=== PATIENT | female | born 1965 | race Caucasian/White ===

== ENCOUNTER 2022-12-17 08:25 | Outpatient (CLI) | payer BC, SELFPAY ==
--- NOTE | 2022-12-17 08:15 | CRLHL7_ITS ---
For Patients: As a result of the Cures Act, medical imaging exams and procedure reports are released immediately into your electronic medical record. You may view this report before your referring provider. If you have questions, please contact your health care provider. BILATERAL SCREENING MAMMOGRAM WITH COMPUTER-AIDED DETECTION AND TOMOSYNTHESIS TECHNIQUE: CC and MLO views were obtained. These mammographic images have been obtained using full-field digital technique. These mammographic images were interpreted with the benefit of computer-aided detection. Breast Tomosynthesis was used in this interpretation. COMPARISON FILM: 2D: 11/25/21, 11/20/20, 03/12/20. 3D: 03/09/19. FINDINGS: There are scattered areas of fibroglandular density IMPRESSION: There is no radiographic evidence for malignancy. ASSESSMENT: BI-RADS Category 1: Negative RECOMMENDATION: Routine screening mammogram in 1 year. A lay language report of this examination will be provided to the patient. Fan Sorenson M.D. Diagnostic/Nuclear Medicine Radiologist [email or web address] Transcribed: 2:22 pm DW/Dictated by: Fan Sorenson MD @ 12/17/2022 8:55:00 AM (Electronically Signed)
== END 2022-12-17 08:26 | disposition home or self-care (01) ==
LOC: MAMMO 08:26
PROVIDERS: PCP Family Medicine; Visit Provider Family Medicine
DX: Z12.31 Encounter for screening mammogram for malignant neoplasm of breast (principal)
CPT/HCPCS: 77063; 77067

== ENCOUNTER 2023-03-10 07:40 | Outpatient (CLI) | payer BC, SELFPAY | END 2023-03-10 07:41 | disposition home or self-care (01) | LOC: NFLDREF 03-12 11:40 | PROVIDERS: PCP Family Medicine; Referring Provider Family Medicine; Visit Provider Family Medicine | DX: Z01.419 Encounter for gynecological examination (general) (routine) without abnormal findings (principal); R68.82 Decreased libido; E03.9 Hypothyroidism, unspecified; R79.89 Other specified abnormal findings of blood chemistry | CPT/HCPCS: 80053; 80061; 84443; 86803 ==

== ENCOUNTER 2023-11-05 09:17 | Outpatient (CLI) | payer BC, SELFPAY ==
--- NOTE | 2023-11-05 09:15 | CRLHL7_ITS ---
For Patients: As a result of the Century Cures Act, medical imaging exams and procedure reports are released immediately into your electronic medical record. You may view this report before your referring provider. If you have questions, please contact your health care provider. INDICATION: Neck pain. COMPARISON: 10/26/2023. TECHNIQUE: Sagittal T1, T2, and STIR sequences. Axial T2/gradient sequences. FINDINGS: Normal vertebral body facet alignment. No fractures. No vertebral body loss of height. No spondylolisthesis. No ligamentous injury. Normal marrow signal. No suspicious osseous lesions. Normal cord signal. No intradural mass or lesion. C1-2: No spinal canal narrowing. C2-3: No spinal canal or neural foraminal narrowing. C3-4: Disk degeneration posterior disc bulging disc osteophyte complex. No narrowing of the spinal canal. Uncovertebral joint hypertrophy results in moderate right and [id number]-[id number] left neural foraminal narrowing. C4-5: Disc generation posted disc bulging disc osteophyte complex. Partial effacement of ventral thecal sac and mild narrowing of spinal canal. Mild right and moderate left neural foraminal narrowing. C5-6: Disc degeneration. Broad-based disc osteophyte complex. Mild narrowing of spinal canal. Moderate bilateral foraminal narrowing. C6-7: Disc degeneration and posterior disc bulging disc osteophyte complex. Mild narrowing of spinal canal. Moderate bilateral foraminal narrowing. C7-T1: No spinal canal or neural foraminal narrowing. No spinal canal or neural foraminal narrowing in the visualized upper thoracic spine. Heterogeneous T2 hyperintense nodule of the right thyroid lobe. This may be better evaluated with ultrasound. IMPRESSION: 1. Normal alignment. No fractures. 2. Normal cord signal. 3. Cervical spondylosis. 4. At C3-4, moderate narrowing of the right neural foramen. 5. At C4-5, mild right and moderate left neural foraminal narrowing. 6. At C5-6 and C6-7, moderate narrowing of the bilateral neural foramina Dictated by Buzz Whitmore MD @ 11/05/2023 2:39:02 PM (Electronically Signed)
== END 2023-11-05 09:18 | disposition home or self-care (01) ==
LOC: MRI 09:17
PROVIDERS: PCP Family Medicine; Visit Provider Family Medicine
DX: M54.2 Cervicalgia (principal); M50.121 Cervical disc disorder at C4-C5 level with radiculopathy; M54.12 Radiculopathy, cervical region; G89.29 Other chronic pain
CPT/HCPCS: 72141

== ENCOUNTER 2023-12-21 08:45 | Outpatient (CLI) | payer OTHER, SELFPAY ==
--- OUTSIDE RECORDS SUMMARY | 2023-12-21 08:49 | XMS_ITS | Clinical Summary ---
Author Name Unknown Organization [facility] Address [place], [place] [address] Care Team Providers Care Production Quality Analyst Name Role Phone Marycarmen Villeda MD Primary Care Provider + Allergies No known active allergies Medications Medication Sig Dispensed Refills Start Date End Date Status TAHIR CHEW DOMINGA TAB 0 01/17/2008 Acti ve PREDNISONE 20 MG TABIndications:Rash and other nonspecific skin eruption 3 tabs qd for 5 days 15 0 02/06/2009 Active Encounters Date Type Department Care Team Description 12/15/2023 10:58 AM AUTO PARTS PROFESSIONAL - 12/15/2023 11:59 PM AUTO PARTS PROFESSIONAL Hospital Encounter [address] [address] Skyler Morris MD Vinar, Kaylin J, RUBBER DOWN 12/15/2023 Travel 12/08/2023 8:00 AM AUTO PARTS PROFESSIONAL - 12/08/2023 11:59 PM AUTO PARTS PROFESSIONAL Hospital Encounter [address] [address] Skyler Morris MD Vinar, Kaylin J, RUBBER DOWN 12/08/2023 Travel 12/01/2023 8:17 AM AUTO PARTS PROFESSIONAL - 12/01/2023 11:59 PM AUTO PARTS PROFESSIONAL Hospital Encounter [address] [address] Skyler Morris MD Hagy, Tia, PT Encounter for person encountering health services 12/01/2023 Travel 10/26/2023 Transcribe Orders [address] [address] Skyler Morris MD from Last 3 Months Immunizations Name Administration Dates Next Due Influenza, IIV3 (Age >=3 years) 09/12/2010 Influenza, IIV4 10/22/2017 Social History Tobacco Use Types Packs/Day Years Used Date Smoking Tobacco: Never Assessed Sex and Gender Information Value Date Recorded Sex Assigned at Not on file Gender Identity Not on file Sexual Orientation Not on file Obstetrics History Last Filed Vital Signs Vital Sign Reading Time Taken Comments Blood Pressure 102/67 02/06/2009 8:19 AM CDT Pulse 76 02/06/2009 8:19 AM CDT Temperature 37 ??C (98.6 ??F) 02/06/2009 8:19 AM CDT Respiratory Rate - - Oxygen Saturation - - Inhaled Oxygen Concentration - - Weight 64 kg (141 lb) 02/06/2009 8:19 AM CDT Height - - Body Mass Index - - Plan of Treatment Upcoming Encounters Date Type Department Care Team (Late st Contact Info) Description 12/24/2023 3:30 PM AUTO PARTS PROFESSIONAL Appointment [address] [address] Carol Novoa, PT [address] [place] [address] 12/29/2023 9:30 AM AUTO PARTS PROFESSIONAL Appointment [address] [address] Daisy Blankenship, RUBBER DOWN [address] [place] [address] 01/05/2024 8:30 AM AUTO PARTS PROFESSIONAL Appointment [address] [address] Carol Novoa, PT [address] [place] [address] 01/12/2024 3:30 PM AUTO PARTS PROFESSIONAL Appointment [address] [place] [address] Carol Novoa, PT 35 [facility] [place] [address] 01/19/2024 10:00 AM AUTO PARTS PROFESSIONAL Appointment [facility] - [address] [place] [address] Carol Novoa, PT [address] [place] [address] Health Maintenance Due Date Last Done Comments Tdap 1977 Depression screening for age 12+ 1978 HIV for age 15-65 1981 BMI (ht and wt on same day) for age 18+ 1984 Tetanus booster 1986 Colonoscopy through age 75 2011 Lipids for age 45-75 2011 Mammogram for age 45-75 03/16/2016 03/16/2015 Zoster (shingles) series for age 50+ (1 of 2) 2016 COVID-19 vaccine series ( season) 2023 11/26/2021, 04/11/2021, 03/14/2021 Influenza for age 50-64 07/24/2023 10/22/2017, 09/12 Pap test for age 21-65 03/13/2026 3, 03/13/2023, 11/01/2018, Additional history exists Hepatitis C screening for age 18-79 Completed 07/31/2003 Pneumococcal series for age 6-64 Aged Out No longer eligible based on patient's age to complete this topic Care Teams Production Quality Analyst Relationship Specialty Start Date End Date Marycarmen Villeda MD [address] [place] [address] PCP - General Family Practice 12/01/23
--- OUTSIDE RECORDS SUMMARY | 2023-12-21 08:49 | XMS_ITS | Encounter Summary ---
Author Name Unknown Organization [facility] Address [address] [place] [address] Care Team Providers Care Film Critic Name Role Phone Unavailable Primary Care Provider Unavailabl e Encounter Details Date Type Department Care Team (Late st Contact Info) Description 09/15/2023 Clinical Communication Department of Orthopedic Surgery in [place], [place] [address] [place] [phone] Andrea Kitchen M.D. [address] [place] [address] Social History Tobacco Use Types Packs/Day Years Used Date Smoking Tobacco: Never Smokeless Tobacco: Never Alcohol Use Standard Drinks/Week Comments Yes 3 (1 standard drink = 0.6 oz pur e alcohol) Humiliation, Afraid, Rape, and Kick questionnair e Answer Date Recorded Within the last year, have y ou been afraid of your partner or ex-partner? No 10/01/2022 Within the last year, have y ou been humiliated or emotionally abused in other ways by your partner or ex-partner? No Within the last year, have y ou been kicked, hit, slapped, or otherwise physically hurt by your partner or ex-partner? No 10/01/2022 Within the last year, have y ou been raped or forced to have any kind of sexual activity by your partner or ex-partner? No 10/01/2022 Social Connection and Isolat ion Panel [NHANES] Answer Date Recorded In a typical week, how many times do you talk on the phone with family, friends, or neighbors? More than three times a week 10/01/2022 How often do you get togethe r with friends or relatives? Three times a week 10/01/2022 How often do you attend chur ch or sikhism services? Never 10/01/2022 Do you belong to any clubs o r organizations such as alevism groups, unions, fraternal or athletic groups, or school groups? Yes 10/01/2022 How often do you attend meet ings of the clubs or organizations you belong to? More than 4 times per year 10/01/2022 Are you , , di vorced, , never , or living with a partner? 10/01/2022 AUDIT-C Answer Date Recorded Q1: How often do you have a drink containing alc ohol? 2-3 times a week 10/01/2022 Q2: How many drinks containi ng alcohol do you have on a typical day when you are drinking? 1 or 2 10/01/2022 Q3: How often do you have si x or more drinks on one occasion? Never 10/01/2022 Overall Financial Resource Strain (CARDIA) Answe r Date Recorded How hard is it for you to pa y for the very basics like food, housing, medical care, and heating? Not hard at all 10/01/2022 [facility] of Occupat ional Health - Occupational Stress Questionnaire Answer Date Recorded Do you feel stress - tense, restless, nervous, or anxious, or unable to sleep at night because your mind is troubled all the time - these days? Only a little 10/01/2022 Exercise Vital Sign Answer Date Recorde d On average, how many days pe r week do you engage in moderate to strenuous exercise (like a brisk walk)? 4 days 10/01/2022 On average, how many minutes do you engage in exercise at this level? 40 min 10/01/2022 Hunger Vital Sign Answer Date Recorded Within the past 12 months, y ou worried that your food would run out before you got the money to buy more. Never true 10/01/20 22 Within the past 12 months, t he food you bought just didn't last and you didn't have money to get more. Never true 10/01/2022 PRAPARE - Transportation Answer Date Re corded In the past 12 months, has l ack of transportation kept you from medical appointments or from getting medications? No 07/2022 In the past 12 months, has l ack of transportation kept you from meetings, work, or from getting things needed for daily living? No 10/01/2022 Housing Stability Vital Sign Answer Jony e Recorded In the last 12 months, was t here a time when you were not able to pay the mortgage or rent on time? No 10/01/2022 In the last 12 months, how many places have you lived? 1 10/01/2022 In the last 12 months, was t here a time when you did not have a steady place to sleep or slept in a nursing home (including now)? No 10/01/2022 Nutrition Answer Date Recorded Nutrition: EVOO Fat Source No 10/01 On average, how many serving s of fruits and vegetables do you eat per day (serving size is equal to 1 cup or approximately the size of a tennis ball)? 2-3 10/01/2022 Dental Answer Date Recorded Dental: Regular Dentist Yes 10/01/20 Employment Answer Date Recorded Employment status Employed and actively working without restrictions 10/01/2022 Education Answer Date Recorded What is the highest level of school you have completed or the highest degree you have received? Master's degree (e.g., MA, MS, Sofia, MEd, MATE FISHING VESSEL, KEVIN) 10/01/2022 Sex and Gender Information Value Date Recorded Sex Assigned at Not on file Gender Identity Female 10/01/2022 10:17 AM MASTIC SPRAYER Sexual Orientation Straight 10/01/2022 10 :17 AM MASTIC SPRAYER documented as of this encounter Miscellaneous Notes * Telephone Encounter - Veronika Rodriguez - 09/15/2023 9:16 AM CDT Spine Network Questionnaire documented in this encounter Plan of Treatment Not on file documented as of this encounter Visit Diagnoses Not on filedocumented in this encounter
--- OUTSIDE RECORDS SUMMARY | 2023-12-21 08:49 | XMS_ITS | Clinical Summary ---
Author Name Unknown Organization [facility] Address [address] [place] [address] Care Team Providers Care Leguillon Debeader Name Role Phone Unavailable Primary Care Provider Unavailabl e Source Comments Patient records contain information from all sites at [facility]. For routine questions regarding patient records, call [phone] during business hours, M-F 8:00 AM - 5:00 PM Central Time. Record requests for emergency care only can be directed to [phone] at any time.[facility] Allergies Active Allergy Reactions Criticality Noted Date Comments Amoxicillin Rash 12/16/2022 Medications Medication Sig Dispensed Refills Start Date End Date Status levothyroxine (SYNTHROID, LEVOTHROID) 112 mcg tablet Take 112 mcg by mouth daily. 0 09/17/2022 Active pediatric multivitamin-iron chewable tablet Chew. 0 01/17/2008 Active Family History Medical History Relation Name Comments Hyperlipidemia Father dad meds Hypertension Father dad meds Coronary artery disease Maternal Grandfather papa heart issues/ 1982 Other cancer Paternal Grandmother liya uterine Ulcerative colitis Son drew treatment /remission Relation Name Status Comments Father dad Maternal Grandfather papa Paternal Grandmother liya Son drew Social History Tobacco Use Types Packs/Day Years [...] 10/01/2022 How often do you attend chur or restorationist services? Never 10/01/2022 Do you belong to any clubs o r organizations such as bahai groups, unions, fraternal or athletic groups, or [...] and heating? Not hard at all 10/01/2022 [facility] of Occupat ional Health - Occupational Stress [...] money to buy more. Never true 10/01/20 Within the past 12 months, t he [...] place to sleep or slept in a [place] (including now)? No 10/01/2022 Nutrition Answer Date [...] Master's degree (e.g., MA, MS, Sofia, MEd, PRECONSTRUCTION MANAGER, KEVIN) 10/01/2022 Sex and Gender Information Value Date Recorded Sex Assigned at Not on file Gender Identity Female 10/01/2022 10:17 AM BAND BIAS MACHINE OPERATOR Sexual Orientation Straight 10/01/2022 10 :17 AM BAND BIAS MACHINE OPERATOR Plan of Treatment Health Maintenance Due Date Last Done Comments CT Colonography 1966 Cologuard 1966 Colonoscopy 1966 Colorectal Cancer Screening 1966 FIT 1966 Fasting Glucose for Diabetes Screening 1966 Hepatitis B Vaccines (1 of 3 - 3-dose series) 1966 Hepatitis C Screening 1966 Lipid (Cholesterol) Screening 1966 Mammogram 1966 Thyroid Stimulating Hormone (TSH) test for thyroid function 1966 Zoster Vaccines (1 of 2) 2016 COVID-19 Vaccine (4 - season) 2023 11/26/2021, 04/11/2021, 03/14/2021 Influenza Vaccine (#1) 2023 , 10/30/2021, 10/06/2020, Additional history exists Depression Screening (Annual PHQ-2) 11/23/2023 Cervical Cancer Screening 03/13/2026 03/13/2023 DTaP,Tdap,and Td Vaccines (3 - Td or Tdap) 10/07/2032 10/07/2022, 06/27/2009 Pneumococcal vaccine (0-64 years) Aged Out No longer eligible based on patient's age [place] [phone]
--- OUTSIDE RECORDS SUMMARY | 2023-12-21 08:49 | XMS_ITS ---
Author Name Unknown Organization [facility] Address [address] [place] [address] Care Team Providers Care Him Analyst Name Role Phone Unavailable Unavailable Unavailable Surgery Details Not on file Complications Check Surgery Details section. Procedure Estimated Blood Loss Check Surgery Details section. Procedure Findings Check Surgery Details section. Procedure Specimens Taken Check Surgery Details section.
--- OUTSIDE RECORDS SUMMARY | 2023-12-21 08:49 | XMS_ITS | Referral Summary ---
Author Name Unknown Organization [facility] Address [address] [place] [address] Care Team Providers Care Electric Meter Repairer Helper Name Role Phone Unavailable Primary Care Provider Unavailabl e Source Comments Patient records contain information from all sites at [facility]. For routine questions regarding patient records, call [phone] during business hours, M-F 8:00 AM - 5:00 PM Central Time. Record requests for emergency care only can be directed to [phone] at any time.[facility] Allergies Active Allergy Reactions Criticality Noted Date Comments Amoxicillin Rash 12/16/2022 Medications Medication Sig Dispensed Refills Start Date End Date Status levothyroxine (SYNTHROID, LEVOTHROID) 112 mcg tablet Take 112 mcg by mouth daily. 0 09/17/2022 Active pediatric multivitamin-iron chewable tablet Chew. 0 01/17/2008 Active Social History Tobacco Use Types Packs/Day Years [...] How often do you attend chur or alevism services? Never 10/01/2022 Do you belong to any clubs o r organizations such as anabaptism groups, unions, fraternal or athletic groups, or [...] and heating? Not hard at all 10/01/2022 [facility] of Occupat iondc Health - Occupational Stress Questionnaire Answer Date [...] place to sleep or slept in a alf (including now)? No 10/01/2022 Nutrition Answer Date [...] Master's degree (e.g., MA, MS, Sofia, MEd, LENS CEMENTER, KEVIN) 10/01/2022 Sex and Gender Information Value Date Recorded Sex Assigned at Not on file Gender Identity Female 10/01/2022 10:17 AM DRIER OPERATOR Sexual Orientation Straight 10/01/2022 10 :17 AM DRIER OPERATOR Plan of Treatment Not on file
--- NOTE | 2023-12-21 09:00 | CRLHL7_ITS ---
For Patients: As a result of the Century Cures Act, medical imaging exams and procedure reports are released immediately into your electronic medical record. You may view this report before your referring provider. If you have questions, please contact your health care provider. INDICATION: Thyroid nodules. TECHNIQUE: Ultrasound thyroid with ortega-scale and color Doppler analysis. COMPARISON: 02/24/2019, 02/11/2019. FINDINGS: Right lobe: 3.6 x 1.9 x 1.9 cm. Lesion 1: Heterogeneous solid nodule with areas of increased echotexture measuring 2.3 x 1.3 x 1.6 cm, previously measuring 2.4 x 1.6 x 1.9 cm. This was previously biopsied. TR 4. Left lobe: 2.7 x 1.0 x 0.9 cm. Lesion 1: Slightly hyperechoic nodule upper pole measuring 4 x 6 x 6 millimeters. Previously, this measured 7 x 5 x 6 millimeters. TR 2. Isthmus: 1 Echotexture of the thyroid parenchyma is heterogeneous. Color Doppler analysis demonstrates normal vascularity. No evidence of lymphadenopathy or parathyroid mass. IMPRESSION: Similar morphology of previously biopsied nodule within the right thyroid lobe. Stable subcentimeter left thyroid lobe. - ACR TI-RADS [email or web address] TR1: Benign No FNA TR2: Not Suspicious No FNA TR3: Mildly Suspicious FNA if greater than or equal to 2.5 cm Follow if greater than or equal to 1.5 cm TR4: Moderately Suspicious FNA if greater than or equal to 1.5 cm Follow if greater than or equal to 1 cm TR5: Highly Suspicious FNA if greater than or equal to 1 cm Follow if greater than or equal to 0.5 cm Dictated by Terrance Eckert MD @ 12/21/2023 12:21:44 PM (Electronically Signed)
== END 2023-12-21 08:46 | disposition home or self-care (01) ==
LOC: US 08:46
PROVIDERS: PCP Family Medicine; Visit Provider Family Medicine
DX: E04.1 Nontoxic single thyroid nodule (principal)
CPT/HCPCS: 76536

== ENCOUNTER 2023-12-22 12:53 | Outpatient (CLI) | payer OTHER, SELFPAY ==
--- OUTSIDE RECORDS SUMMARY | 2023-12-22 12:56 | XMS_ITS | Encounter Summary ---
Author Name Unknown Organization [facility] Address [address] [place] [address] Care Team Providers Care Vp Marketing Services And Skin Name Role Phone Unavailable Primary Care Provider Unavailabl e Encounter Details Date Type Department Care Team (Late st Contact Info) Description 09/15/2023 Clinical Communication Department of Orthopedic Surgery in [place], [place] [address] [place] [phone] Andrea Kitchen M.D. [address] [place] [address] Social History Tobacco Use Types Packs/Day Years [...] often do you attend chur ch or christian services? Never 10/01/2022 Do you belong to any clubs o r organizations such as gnosticist groups, unions, fraternal or athletic groups, or [...] and heating? Not hard at all 10/01/2022 [facility] of Occupat ional Health - Occupational Stress [...] place to sleep or slept in a penitentiary (including now)? No 10/01/2022 Nutrition Answer Date [...] Master's degree (e.g., MA, MS, Sofia, MEd, OIL FURNACE INSTALLER, KEVIN) 10/01/2022 Sex and Gender Information Value Date Recorded Sex Assigned at Not on file Gender Identity Female 10/01/2022 10:17 AM FUSING FURNACE LOADER Sexual Orientation Straight 10/01/2022 10 :17 AM FUSING FURNACE LOADER documented as of this encounter Miscellaneous Notes * Telephone Encounter - Veronika Rodriguez - 09/15/2023 9:16 AM CDT Spine Network Questionnaire documented in this encounter Plan of Treatment Not on file documented as of this encounter Visit Diagnoses Not on filedocumented in this encounter
--- OUTSIDE RECORDS SUMMARY | 2023-12-22 12:56 | XMS_ITS | Referral Summary ---
Author Name Unknown Organization [facility] Address [address] [place] [address] Care Team Providers Care Model Maker Apprentice Name Role Phone Unavailable Primary Care Provider Unavailabl e Source Comments Patient records contain information from all sites at [facility]. For routine questions regarding patient records, call [phone] during business hours, M-F 8:00 AM - 5:00 PM Central Time. Record requests for emergency care only can be directed to [phone] at any time.[facility] Allergies Active Allergy Reactions Criticality Noted Date [...] How often do you attend chur or jewish services? Never 10/01/2022 Do you belong to any clubs o r organizations such as adventism groups, unions, fraternal or athletic groups, or [...] and heating? Not hard at all 10/01/2022 [facility] of Occupat ionsd Health - Occupational Stress Questionnaire Answer Date [...] place to sleep or slept in a fpc (including now)? No 10/01/2022 Nutrition Answer Date [...] Master's degree (e.g., MA, MS, Sofia, MEd, DONOR RELATIONS ASSOCIATE, KEVIN) 10/01/2022 Sex and Gender Information Value Date Recorded Sex Assigned at Not on file Gender Identity Female 10/01/2022 10:17 AM STUNTMAN Sexual Orientation Straight 10/01/2022 10 :17 AM STUNTMAN Plan of Treatment Not on file
--- OUTSIDE RECORDS SUMMARY | 2023-12-22 12:56 | XMS_ITS ---
Author Name Unknown Organization [facility] Address [address] [place] [address] Care Team Providers Care Pharmacy Delivery Driver Name Role Phone Unavailable Unavailable Unavailable Surgery Details Not on file Complications Check Surgery Details section. Procedure Estimated Blood Loss Check Surgery Details section. Procedure Findings Check Surgery Details section. Procedure Specimens Taken Check Surgery Details section.
--- OUTSIDE RECORDS SUMMARY | 2023-12-22 12:56 | XMS_ITS | Clinical Summary ---
Author Name Unknown Organization [employer] [facility] Address [place], [place] [address] Care Team Providers Care Phlebotomy Instructor Name Role Phone Marycarmen Villeda MD Primary Care Provider + Allergies No known active allergies Medications Medication Sig Dispensed Refills Start Date End Date Status TAHIR CHEW DOMINGA TAB 0 01/17/2008 Acti ve PREDNISONE 20 MG TABIndications:Rash and other nonspecific skin eruption 3 tabs qd for 5 days 15 0 02/06/2009 Active Encounters Date Type Department Care Team Description 12/15/2023 10:58 AM WELCOME HOSTESS - 12/15/2023 11:59 PM WELCOME HOSTESS Hospital Encounter [address] [address] Skyler Morris MD Vinar, Kaylin J, DELI WORKER 12/15/2023 Travel 12/08/2023 8:00 AM WELCOME HOSTESS - 12/08/2023 11:59 PM WELCOME HOSTESS Hospital Encounter [address] [address] Skyler Morris MD Vinar, Kaylin J, DELI WORKER 12/08/2023 Travel 12/01/2023 8:17 AM WELCOME HOSTESS - 12/01/2023 11:59 PM WELCOME HOSTESS Hospital Encounter [address] [address] Skyler Morris MD Hagy, Tia, PT Encounter for person encountering health services 12/01/2023 Travel 10/26/2023 Transcribe Orders [address] [address] Skyler Morris MD from Last 3 Months [...] st Contact Info) Description 12/24/2023 3:30 PM WELCOME HOSTESS Appointment [address] [address] Carol Novoa, PT [address] [place] [address] 12/29/2023 9:30 AM WELCOME HOSTESS Appointment [address] [address] Daisy Blankenship, DELI WORKER [address] [place] [address] 01/05/2024 8:30 AM WELCOME HOSTESS Appointment [address] [address] Carol Novoa, PT [address] [place] [address] 01/12/2024 3:30 PM WELCOME HOSTESS Appointment [address] [place] [address] Carol Novoa, PT 35 [facility] [place] [address] 01/19/2024 10:00 AM WELCOME HOSTESS Appointment [facility] - [address] [place] [address] Carol Novoa, PT [address] [place] [address] Health Maintenance Due Date Last Done Comments [...] age to complete this topic Care Teams Phlebotomy Instructor Relationship Specialty Start Date End Date Marycarmen Villeda MD [address] [place] [address] PCP - General Family Practice 12/01/23
--- OUTSIDE RECORDS SUMMARY | 2023-12-22 12:56 | XMS_ITS | Clinical Summary ---
Author Name Unknown Organization [facility] Address [address] [place] [address] Care Team Providers Care Cna Gna Name Role Phone Unavailable Primary Care Provider Unavailabl e Source Comments Patient records contain information from all sites at [facility]. For routine questions regarding patient records, call [phone] during business hours, M-F 8:00 AM - 5:00 PM Central Time. Record requests for emergency care only can be directed to [phone] at any time.[facility] Allergies Active Allergy Reactions Criticality Noted [...] How often do you attend chur or tenriism services? Never 10/01/2022 Do you belong to any clubs o r organizations such as episcopalian groups, unions, fraternal or athletic groups, or [...] and heating? Not hard at all 10/01/2022 [facility] of Occupat ional Health - Occupational Stress [...] Master's degree (e.g., MA, MS, Sofia, MEd, VETERINARY LABORATORY TECHNICIAN, KEVIN) 10/01/2022 Sex and Gender Information Value Date Recorded Sex Assigned at Not on file Gender Identity Female 10/01/2022 10:17 AM GEOTHERMAL POWERPLANT MECHANIC Sexual Orientation Straight 10/01/2022 10 :17 AM GEOTHERMAL POWERPLANT MECHANIC Plan of Treatment Health Maintenance Due Date [...] patient's age [place] [address]
--- NOTE | 2023-12-22 13:00 | CRLHL7_ITS ---
For Patients: As a result of the Century Cures Act, medical imaging exams and procedure reports are released immediately into your electronic medical record. You may view this report before your referring provider. If you have questions, please contact your health care provider. BILATERAL SCREENING MAMMOGRAM WITH COMPUTER-AIDED DETECTION AND TOMOSYNTHESIS TECHNIQUE: CC and MLO views were obtained. These mammographic images have been obtained using full-field digital technique. These mammographic images were interpreted with the benefit of computer-aided detection. Breast Tomosynthesis was used in this interpretation. COMPARISON FILM: 12/17/22, 11/25/21, 11/20/20. FINDINGS: There are scattered areas of fibroglandular density. IMPRESSION: There is no radiographic evidence for malignancy. ASSESSMENT: BI-RADS Category 1: Negative RECOMMENDATION: Routine screening mammogram in 1 year. A lay language report of this examination will be provided to the patient. Terrance Eckert M.D. Diagnostic Radiologist [email or web address] SP/Dictated by: Terrance Eckert MD @ 12/23/2023 1:30:00 PM (Electronically Signed)
== END 2023-12-22 12:54 | disposition home or self-care (01) ==
LOC: MAMMO 12:54
PROVIDERS: PCP Family Medicine; Visit Provider Family Medicine
DX: Z12.31 Encounter for screening mammogram for malignant neoplasm of breast (principal)
CPT/HCPCS: 77063; 77067

== ENCOUNTER 2024-04-28 08:16 | Outpatient (CLI) | payer OTHER, SELFPAY ==
--- OUTSIDE RECORDS SUMMARY | 2024-05-02 13:44 | XMS_ITS ---
Author Organization [facility] Address [address] [place] [address] Care Team Providers Care Network Analyst Name Role Phone Unavailable Unavailable Unavailable Surgery Details Not on file Complications Check Surgery Details section. Procedure Estimated Blood Loss Check Surgery Details section. Procedure Findings Check Surgery Details section. Procedure Specimens Taken Check Surgery Details section.
--- OUTSIDE RECORDS SUMMARY | 2024-05-02 13:44 | XMS_ITS | Referral Summary ---
Author Organization [facility] Address [address] [place] [address] Care Team Providers Care Index Editor Name Role Phone Unavailable Primary Care Provider Unavailabl e Source Comments Patient records contain information from all sites at [facility]. For routine questions regarding patient records, call [phone] during business hours, M-F 8:00 AM - 5:00 PM Central Time. Record requests for emergency care only can be directed to [phone] at any time.[facility] Allergies Active Allergy Reactions Criticality Noted Date Comments Amoxicillin Rash 12/16/2022 Medications Medication Sig Dispensed Refills Start Date End Date Status levothyroxine (SYNTHROID, LEVOTHROID) 112 mcg tablet Take 112 mcg by mouth daily. 09/17/2022 Active pediatric multivitamin-iron chewable tablet Chew. 01/17/2008 Active Social History Tobacco Use Types [...] often do you attend chur ch or protestant services? Never 10/01/2022 Do you belong to any clubs o r organizations such as congregational groups, unions, fraternal or athletic groups, or [...] and heating? Not hard at all 10/01/2022 [facility] of Occupat ional Health - Occupational Stress [...] the money to buy more. Never true 11/09/20 22 Within the past 12 months, t [...] place to sleep or slept in a detention (including now)? No 10/01/2022 Nutrition Answer Date [...] Master's degree (e.g., MA, MS, Sofia, MEd, HOG WORKER, KEVIN) 10/01/2022 Sex and Gender Information Value Date Recorded Sex Assigned at Not on file Gender Identity Female 10/01/2022 10:17 AM FRONT DESK RECEPTIONIST Sexual Orientation Straight 10/01/2022 10 :17 AM FRONT DESK RECEPTIONIST Plan of Treatment Not on file
--- OUTSIDE RECORDS SUMMARY | 2024-05-02 13:44 | XMS_ITS | Clinical Summary ---
Author Organization [employer] [facility] Address [place], [place] [address] Care Team Providers Care Parking Control Officer Name Role Phone Marycarmen Villeda MD Primary Care Provider + Allergies No known active allergies Medications Medication Sig Dispensed Refills Start Date End Date Status TAHIR CHEW DOMINGA TAB 0 01/17/2008 Acti ve PREDNISONE 20 MG TABIndications:Rash and other nonspecific skin eruption 3 tabs qd for 5 days 15 0 02/06/2009 Active Immunizations Name Administration Dates Next Due Influenza, [...] Mass Index - - Plan of Treatment Health Maintenance Due Date [...] (1 of 2) 2016 COVID-19 vaccine series (4 - season) 2023 11/26/2021, 04/11/2021, 03/14/2021 Influenza for age 50-64 07/24/2024 10/22/2017, 09/12 Pap test for age 21-65 03/13/2026 , 03/13/2023, 11/01/2018, Additional history exists Hepatitis C screening for age 18-79 Completed 07/31/2003 Pneumococcal series for age 6-64 Aged Out No longer eligible based on patient's age to complete this topic Procedures Procedure Name Priority Date/Time Associated Diagnosis Comments HPV THIN PREP Routine 03/13/2023 10:30 AM CDT Encounter for screening for malignant neoplasm of cervix SCAN-MAMMOGRAPHY REPORT 03/16/2015 12:00 AM CDT ANTI HCV Routine 07/31/2003 5:18 PM CDT from Last 3 Months or Most Recently Relevant to Health Maintenance Results * HPV HIGH RISK (03/13/2023 10:30 AM CDT) TYPE 16 Negative Negative 03/17/2023 5:32 PM CDT [facility] LAB[facility]AT[facility] TYPE 18 Negative Negative 03/17/2023 5:32 PM CDT [facility] TRAL LAB[facility]ORY OTHER HIGH RISK TYPES Negative Negative 03/17/2023 5:32 PM CDT [facility] TR[facility] LAB[facility] Other (Cervical/Vagina l) 03/13/2023 10:30 AM CDT 03/16/2023 9:51 AM CDT Narrative [facility] - 03/17/2023 5:32 PM CDT HPV types 16, 18, 31, 33, 35, 39, 45, 51, 52, 56, 58, 59, 66 and 68 DNA were undetectable or below the pre-set threshold. Methodology: Taya Nathalia 4800 HPV Test Marycarmen Villeda MD MICROBIOLOGY [facility] [address] [place] [address], * SCAN-MAMMOGRAPHY REPORT (03/16/2015 12:00 AM CDT) Anatomical Region Laterality Modality Other Narrative 03/19/2015 12:10 PM CDT Procedure Note Scanner - 03/16/2015 12:00 AM CDT Scanner OTHER * ANTI HCV (07/31/2003 5:18 PM CDT) ANTI HCV Non-reactiv e 07/31/2003 5:18 PM CDT Narrative 05/02/2004 8:57 AM CDT Ordered by an unspecified provider. Other Clinical Staff SEND OUTS from Last 3 Months or Most Recently Relevant to Health Maintenance Care Teams Parking Control Officer Relationship Specialty Start Date End Date Marycarmen Villeda MD [address] [place] [address] PCP - General Family Practice 12/01/23
--- OUTSIDE RECORDS SUMMARY | 2024-05-02 13:44 | XMS_ITS | Clinical Summary ---
Author Organization [facility] Address [address] [place] [address] Care Team Providers Care Client Professional Name Role Phone Unavailable Primary Care Provider Unavailabl e Source Comments Patient records contain information from all sites at [facility]. For routine questions regarding patient records, call [phone] during business hours, M-F 8:00 AM - 5:00 PM Central Time. Record requests for emergency care only can be directed to [phone] at any time.[facility] Allergies Active Allergy Reactions Criticality Noted Date Comments Amoxicillin Rash 12/16/2022 Medications Medication Sig Dispensed Refills Start Date End Date Status levothyroxine (SYNTHROID, LEVOTHROID) 112 mcg tablet Take 112 mcg by mouth daily. 09/17/2022 Active pediatric multivitamin-iron chewable tablet Chew. 01/17/2008 Active Family History Medical History Relation [...] How often do you attend chur or muslim services? Never 10/01/2022 Do you belong to any clubs o r organizations such as jehovah's witness groups, unions, fraternal or athletic groups, or [...] and heating? Not hard at all 10/01/2022 [facility] [place] of Occupat ional Health - Occupational Stress [...] place to sleep or slept in a custodial (including now)? No 10/01/2022 Nutrition Answer Date [...] Master's degree (e.g., MA, MS, Sofia, MEd, ONLINE HEALTH AND FITNESS COACH, KEVIN) 10/01/2022 Sex and Gender Information Value Date Recorded Sex Assigned at Not on file Gender Identity Female 10/01/2022 10:17 AM APPLIED MARINE PHYSICS PROFESSOR Sexual Orientation Straight 10/01/2022 10 :17 AM APPLIED MARINE PHYSICS PROFESSOR Plan of Treatment Health Maintenance Due Date Last Done Comments CT Colonography 1966 Cologuard 1966 Colonoscopy 1966 Colorectal Cancer Screening 1966 FIT 1966 Fasting Glucose for Diabetes Screening 1966 Hepatitis C Screening 1966 Lipid (Cholesterol) Screening 1966 Mammogram 1966 Thyroid Stimulating Hormone (TSH) test for thyroid function 1966 Hepatitis B Vaccines (1 of 3 - 19+ 3-dose series) 1985 Zoster Vaccines (1 of 2) 2016 COVID-19 Vaccine ( - 2022-24 season) 2023 11/26/2021, 04/11/2021, 03/14/2021 Depression Screening (Annual PHQ-2) 11/23/2023 Cervical Cancer Screening 03/13/2026 03/13/2023 DTaP,Tdap,and Td Vaccines (3 - Td or Tdap) 10/07/2032 10/07/2022, 06/27/2009 Influenza Vaccine Completed 12/09/2023, , 10/30/2021, Additional history exists Pneumococcal vaccine (0-64 years) Aged Out No longer eligible based on patient's age to complete this topic
== END 2024-04-28 08:17 | disposition home or self-care (01) ==
LOC: NFLDREF 05-02 13:43
PROVIDERS: PCP Family Medicine; Referring Provider Family Medicine; Visit Provider Family Medicine
DX: Z00.00 Encounter for general adult medical examination without abnormal findings (principal); E03.8 Other specified hypothyroidism; E06.3 Autoimmune thyroiditis; E78.5 Hyperlipidemia, unspecified; R79.89 Other specified abnormal findings of blood chemistry; Z13.9 Encounter for screening, unspecified
CPT/HCPCS: 80053; 80061; 84443

== ENCOUNTER 2024-05-12 13:14 | Outpatient (CLI) | payer OTHER, SELFPAY ==
--- OUTSIDE RECORDS SUMMARY | 2024-05-12 13:16 | XMS_ITS | Referral Summary ---
Author Organization [facility] Address [address] [place] [address] Care Team Providers Care Senior Specialist Name Role Phone Unavailable Primary Care Provider Unavailabl e Source Comments Patient records contain information from all sites at [facility]. For routine questions regarding patient records, call [phone] during business hours, M-F 8:00 AM - 5:00 PM Central Time. Record requests for emergency care only can be directed to [phone] at any time.[facility] Allergies Active Allergy Reactions Criticality Noted [...] often do you attend chur ch or oriental orthodox services? Never 10/01/2022 Do you belong to any clubs o r organizations such as yazdanism groups, unions, fraternal or athletic groups, or [...] and heating? Not hard at all 10/01/2022 [facility] of Occupat ional Health - Occupational [...] Master's degree (e.g., MA, MS, Sofia, MEd, CHILD DEVELOPMENT ASSISTANT, KEVIN) 10/01/2022 Sex and Gender Information Value Date Recorded Sex Assigned at Not on file Gender Identity Female 10/01/2022 10:17 AM PAINT MIXER HAND Sexual Orientation Straight 10/01/2022 10 :17 AM PAINT MIXER HAND Plan of Treatment Not on file
--- OUTSIDE RECORDS SUMMARY | 2024-05-12 13:16 | XMS_ITS | Clinical Summary ---
Author Organization [facility] Address [address] [place] [address] Care Team Providers Care Cloth Packer Name Role Phone Unavailable Primary Care Provider Unavailabl e Source Comments Patient records contain information from all sites at [facility]. For routine questions regarding patient records, call [phone] during business hours, M-F 8:00 AM - 5:00 PM Central Time. Record requests for emergency care only can be directed to [phone] at any time.[facility] Allergies Active Allergy Reactions Criticality Noted [...] How often do you attend chur or christianity services? Never 10/01/2022 Do you belong to any clubs o r organizations such as methodist groups, unions, fraternal or athletic groups, or [...] and heating? Not hard at all 10/01/2022 [facility] [place] of Occupat ional Health - Occupational Stress [...] place to sleep or slept in a jail (including now)? No 10/01/2022 Nutrition Answer Date [...] Master's degree (e.g., MA, MS, Sofia, MEd, VETERANS SERVICE OFFICER, KEVIN) 10/01/2022 Sex and Gender Information Value Date Recorded Sex Assigned at Not on file Gender Identity Female 10/01/2022 10:17 AM SUBSTANCE ABUSE SPECIALIST Sexual Orientation Straight 10/01/2022 10 :17 AM SUBSTANCE ABUSE SPECIALIST Plan of Treatment Health Maintenance Due Date [...]
--- OUTSIDE RECORDS SUMMARY | 2024-05-12 13:16 | XMS_ITS ---
Author Organization [facility] Address [address] [place] [address] Care Team Providers Care 3D Technologist Name Role Phone Unavailable Unavailable Unavailable Surgery Details Not on file Complications Check Surgery Details section. Procedure Estimated Blood Loss Check Surgery Details section. Procedure Findings Check Surgery Details section. Procedure Specimens Taken Check Surgery Details section.
--- OUTSIDE RECORDS SUMMARY | 2024-05-12 13:16 | XMS_ITS | Clinical Summary ---
Author Organization [employer] [facility] Address [place], [place] [address] Care Team Providers Care Hoop Coiler Name Role Phone Marycarmen Villeda MD Primary [...] 16 Negative Negative 03/17/2023 5:32 PM CDT [facility] TR[facility] LABORATORY TYPE 18 Negative Negative 03/17/2023 5:32 PM CDT [facility] TR[facility] OTHER HIGH RISK TYPES Negative Negative 03/17/2023 5:32 PM CDT [facility] Other (Cervical/Vagina l) 03/13/2023 10:30 AM CDT 03/16/2023 9:51 AM CDT Narrative [facility] - 03/17/2023 5:32 PM CDT HPV types 16, 18, 31, 33, 35, 39, 45, 51, 52, 56, 58, 59, 66 and 68 DNA were undetectable or below the pre-set threshold. Methodology: Taya Nathalia 4800 HPV Test Marycarmen Villeda MD MICROBIOLOGY [facility]AL LAB[facility]ORY [address] [place] [address], * SCAN-MAMMOGRAPHY REPORT (03/16/2015 12:00 AM CDT) [...] Recently Relevant to Health Maintenance Care Teams Hoop Coiler Relationship Specialty Start Date End Date Marycarmen Villeda MD [address] [place] [address] PCP - General Family Practice 12/01/23
== END 2024-05-12 13:15 | disposition home or self-care (01) ==
PROVIDERS: PCP Family Medicine; Visit Provider Family Medicine
DX: Z00.00 Encounter for general adult medical examination without abnormal findings (principal); E03.9 Hypothyroidism, unspecified; R68.82 Decreased libido; R79.89 Other specified abnormal findings of blood chemistry; E06.3 Autoimmune thyroiditis; E78.5 Hyperlipidemia, unspecified; R74.8 Abnormal levels of other serum enzymes
CPT/HCPCS: 80074; 82103; 82390; 82728; 82977; 86015; 86039; 86376

== ENCOUNTER 2024-06-14 07:07 | Outpatient (CLI) | payer OTHER, SELFPAY ==
--- OUTSIDE RECORDS SUMMARY | 2024-06-14 07:09 | XMS_ITS | Referral Summary ---
Author Organization [facility] Address [address] [place] [address] Care Team Providers Care Information Security Manager Name Role Phone Unavailable Primary Care Provider Unavailabl e Source Comments Patient records contain information from all sites at [facility]. For routine questions regarding patient records, call [phone] during business hours, M-F 8:00 AM - 5:00 PM Central Time. Record requests for emergency care only can be directed to [phone] at any time.[facility] Allergies Active Allergy Reactions Criticality Noted [...] often do you attend chur ch or scientologist services? Never 10/01/2022 Do you belong to any clubs o r organizations such as synagogue groups, unions, fraternal or athletic groups, or [...] 10/01/2022 [facility] of Occupat ional Health - Occupational [...] Master's degree (e.g., MA, MS, Sofia, MEd, REGISTRY NP, KEVIN) 10/01/2022 Sex and Gender Information Value Date Recorded Sex Assigned at Not on file Gender Identity Female 10/01/2022 10:17 AM OIL BURNER REPAIRER Sexual Orientation Straight 10/01/2022 10 :17 AM OIL BURNER REPAIRER Plan of Treatment Not on file
--- OUTSIDE RECORDS SUMMARY | 2024-06-14 07:09 | XMS_ITS ---
Author Organization [facility] Address [address] [place] [address] Care Team Providers Care Compound Mixer Name Role Phone Unavailable Unavailable Unavailable Surgery Details Not on file Complications Check Surgery Details section. Procedure Estimated Blood Loss Check Surgery Details section. Procedure Findings Check Surgery Details section. Procedure Specimens Taken Check Surgery Details section.
--- OUTSIDE RECORDS SUMMARY | 2024-06-14 07:09 | XMS_ITS | Clinical Summary ---
Author Organization [facility] Address [place], [place] [address] Care Team Providers Care Cafeteria Associate Name Role Phone Marycarmen Villeda MD Primary [...] 16 Negative Negative 03/17/2023 5:32 PM CDT [facility] TR[facility] LABORATORY TYPE 18 Negative Negative 03/17/2023 5:32 PM CDT [facility] TR[facility] LABORATORY OTHER HIGH RISK TYPES Negative Negative 03/17/2023 5:32 PM CDT [facility] LABORATORY Other (Cervical/Vagina l) 03/13/2023 10:30 AM CDT 03/16/2023 9:51 AM CDT Narrative [facility] - 03/17/2023 5:32 PM CDT HPV types 16, 18, 31, 33, 35, 39, 45, 51, 52, 56, 58, 59, 66 and 68 DNA were undetectable or below the pre-set threshold. Methodology: Taya Nathalia 4800 HPV Test Marycarmen Villeda MD MICROBIOLOGY [facility]-CENTRAL LABORATORY [address] [place] [address], * SCAN-MAMMOGRAPHY REPORT (03/16/2015 12:00 AM CDT) [...] Recently Relevant to Health Maintenance Care Teams Cafeteria Associate Relationship Specialty Start Date End Date Marycarmen Villeda MD [address] [place] [address] PCP - General Family Practice 12/01/23
--- OUTSIDE RECORDS SUMMARY | 2024-06-14 07:09 | XMS_ITS | Continuity of Care Document ---
Author Organization [facility] Address [address] [address] [place] [address] Phone Care Team Providers Care Director Of Retention Name Role Phone No Information Unavailable Unavailable Advance Directives Directive Yes / No Effective Date File Name No Information Encounters Encounter Description Practice Location Reason(s) For Visit Diagnoses Date Provider Providers Copied on Encounter [facility], [address] [address], [place], [place], [id number], [place] tel:[phone] No Information No Information Family History Family Member Type Diagnosis Age At Onset No Information Payers Payer name Insurance type Covered democrat ID Authoriza tion(s) No Information Social History Type Description Quantity Date Captured Comments Sex Female Smoking Status No Information Chief Complaint And Reason For Visit No Information Reason For Referral Reason For Referral No Information History Of Present Illness Encounter Date Complaint History Of Prese nt Illness No Information Functional Status Date Functional Assessmen t No Information Instructions Date Instruction Additional Infor mation No Information Assessments Type Assessment Date No Information Patient Care Teams Name Effective Dates (start - stop) Status Members No Information
--- OUTSIDE RECORDS SUMMARY | 2024-06-14 07:09 | XMS_ITS | Clinical Summary ---
Author Organization [facility] Address [address] [place] [address] Care Team Providers Care Budget Coordinator Name Role Phone Unavailable Primary Care Provider Unavailabl e Source Comments Patient records contain information from all sites at [facility]. For routine questions regarding patient records, call [phone] during business hours, M-F 8:00 AM - 5:00 PM Central Time. Record requests for emergency care only can be directed to [phone] at any time.[facility] Allergies Active Allergy Reactions Criticality Noted [...] How often do you attend chur or baptism services? Never 10/01/2022 Do you belong to any clubs o r organizations such as zoroastrian groups, unions, fraternal or athletic groups, or [...] and heating? Not hard at all 10/01/2022 [facility] [place] of Occupat ional Health - Occupational Stress [...] Master's degree (e.g., MA, MS, Sofia, MEd, BRIM PLATER, KEVIN) 10/01/2022 Sex and Gender Information Value Date Recorded Sex Assigned at Not on file Gender Identity Female 10/01/2022 10:17 AM FREELANCE TRANSLATOR Sexual Orientation Straight 10/01/2022 10 :17 AM FREELANCE TRANSLATOR Plan of Treatment Health Maintenance Due Date [...] of 2) 2016 COVID-19 Vaccine (4 - 2022-24 season) 2023 11/26/2021, 04/11/2021, 03/14/2021 Depression Screening (Annual PHQ-2) 11/23/2023 Influenza Vaccine (#1) 2024 , 09/23/2022, 10/30/2021, Additional history exists Cervical Cancer Screening 03/13/2026 03/13/2023 DTaP,Tdap,and Td Vaccines (3 - Td or Tdap) 10/07/2032 10/07/2022, 06/27/2009 Pneumococcal vaccine (0-64 years) Aged Out No longer eligible based on patient's age [place] [address]
--- NOTE | 2024-06-14 07:15 | CRLHL7_ITS ---
For Patients: As a result of the Century Cures Act, medical imaging exams and procedure reports are released immediately into your electronic medical record. You may view this report before your referring provider. If you have questions, please contact your health care provider. INDICATION: elevated LFTs COMPARISON: none TECHNIQUE: Real time ortega scale imaging and color Doppler analysis was performed of the right upper quadrant. FINDINGS: The patient`s liver is of normal size and has mildly increased echogenicity. There is a normal appearance of the hepatic IVC and proximal abdominal aorta. There is no evidence of ascites. The gallbladder is of normal size and there is no evidence of intraluminal stones or sludge. The gallbladder wall measures 1.25 mm in thickness. The common bile duct is of normal size and measures 7.3 mm in diameter at the level of the rick hepatis. The pancreas appears normal. There is no evidence of a stone or hydronephrosis within the right kidney. The right kidney measures 10.0 cm in length. IMPRESSION: Mild hepatic steatosis. Remainder unremarkable. Dictated by Terrance Eckert MD @ 06/14/2024 9:40:34 AM (Electronically Signed)
== END 2024-06-14 07:08 | disposition home or self-care (01) ==
PROVIDERS: PCP Family Medicine; Visit Provider Family Medicine
DX: R79.89 Other specified abnormal findings of blood chemistry (principal); K76.0 Fatty (change of) liver, not elsewhere classified
CPT/HCPCS: 76705

== ENCOUNTER 2025-02-02 14:59 | Outpatient (CLI) | payer OTHER, SELFPAY | END 2025-02-02 15:00 | disposition home or self-care (01) | PROVIDERS: PCP Family Medicine; Visit Provider Family Medicine | DX: K76.0 Fatty (change of) liver, not elsewhere classified (principal) | CPT/HCPCS: 80053; 82977 ==

== ENCOUNTER 2025-03-21 14:27 | Outpatient (CLI) | payer OTHER, SELFPAY ==
--- NOTE | 2025-03-21 14:40 | CRLHL7_ITS ---
For Patients: As a result of the Century Cures Act, medical imaging exams and procedure reports are released immediately into your electronic medical record. You may view this report before your referring provider. If you have questions, please contact your health care provider. INDICATION: BILATERAL SCREENING MAMMOGRAM, ASYMPTOMATIC 59 F COMPARISON: 12/22/23, 12/17/22, 11/25/21 TECHNIQUE: CC and MLO views were obtained. These mammographic images have been obtained using full-field digital technique. These mammographic images were interpreted with the benefit of computer aided detection and tomosynthesis. BREAST COMPOSITION: There are scattered areas of fibroglandular density. FINDINGS: No suspicious findings. ASSESSMENT: BI-RADS 1 Negative RECOMMENDATION: Annual screening mammogram. A lay language report of this examination will be provided to the patient. Dictated by: Terrance Eckert MD @ 03/29/2025 12:44:47 (Electronically Signed)
== END 2025-03-21 14:28 | disposition home or self-care (01) ==
LOC: MAMMO 14:28
PROVIDERS: PCP Family Medicine; Visit Provider Family Medicine
DX: Z12.31 Encounter for screening mammogram for malignant neoplasm of breast (principal)
CPT/HCPCS: 77063; 77067

== ENCOUNTER 2025-07-25 13:30 | Outpatient (CLI) | payer OTHER, SELFPAY | END 2025-07-25 13:31 | disposition home or self-care (01) | LOC: NFLDREF 07-26 12:53 | PROVIDERS: PCP Family Medicine; Referring Provider Family Medicine; Visit Provider Family Medicine | DX: E78.5 Hyperlipidemia, unspecified (principal); R79.89 Other specified abnormal findings of blood chemistry; E03.8 Other specified hypothyroidism; E06.3 Autoimmune thyroiditis | CPT/HCPCS: 80053; 80061; 84443 ==